=== PATIENT | female | born 1945 | race Caucasian/White ===

== ENCOUNTER → 2020-11-05 | Day surgery (SDC) | payer MEDICARE, OTHER ==
[~2020-11-05] VITALS: Ht 165.1 cm; Wt 74.4 kg
[~2020-11-05] MED LIST: ALLERGY RELIEF10 M1 PO; DAILY VITAMIN1 EAC2 PO
[2020-11-05 11:43] LABS: HCT 40.9 % (37.0-47.0); HGB 13.7 g/dl (12.5-16.0); MCHC 33.5 g/dL (32.0-36.0); MCV 89.7 fL (78.0-100.0); MPV 9.6 fL (6.0-9.5); RBC 4.56 M/uL (4.20-5.40); RDW 15.3 % (11.5-14.0); WBC 7.5 K/uL (4.0-10.5)
[2020-11-05 11:57] LABS: BUN/CREAT RATIO (CALC) 13.3 RATIO; CREATININE 0.9 mg/dL (0.51-0.95); POTASSIUM 4.1 mmol/L (3.5-5.1)
== END | disposition home or self-care (01) ==
LOC: FAS 10:36
PROVIDERS: Obstetrics & Gynecology
DX: N85.01 Benign endometrial hyperplasia (principal); N95.0 Postmenopausal bleeding; Z91.02 Food additives allergy status; Z79.899 Other long term (current) drug therapy
CPT/HCPCS: 36415; 80048; 86850; 86900; 86901; 88305; 93005; J1885; J2250; J2405; J2704; J3010; J7120